=== PATIENT | female | born 1980 | race Caucasian/White ===

== ENCOUNTER 2023-10-31 09:31 | Emergency (ER) | payer OTHER, SELFPAY ==
--- NOTE | ~2023-10-31 | CT_ITS ---
EXAMINATION: CT ABDOMEN AND PELVIS WITH CONTRAST CLINICAL INFORMATION: Right lower quadrant pain COMPARISON: None available. TECHNIQUE: Multidetector volumetric images were obtained from the superior aspect of the liver through the pubic symphysis following administration 85 mL of Omnipaque 350 intravenous contrast. Sagittal and coronal reformatted images were obtained on the technologist's workstation. Oral contrast: No This CT examination was performed using dose optimization techniques as appropriate, variously including the following: *Automated exposure control *Adjustment of mA and/or kV according to patient size (this includes techniques or standardized protocols for targeted exams where dose is matched to indication/reason for exam; i.e. extremities or head) *Use of iterative reconstruction technique DLP: 684 mGy-cm FINDINGS: LUNG BASES: Unremarkable. ABDOMINAL AND PELVIC WALL: Small fat-containing umbilical hernia. LIVER AND BILIARY TREE: Unremarkable. GALLBLADDER: Unremarkable. PANCREAS: Unremarkable. SPLEEN: Incidentally noted accessory splenule. ADRENAL GLANDS: A 1.3 cm left homogeneous adrenal nodule measuring 50 Hounsfield units. KIDNEYS AND URETERS: Circumaortic left renal vein. GASTROINTESTINAL TRACT: Colonic diverticulosis without evidence of diverticulitis. Normal appendix. VASCULAR: Unremarkable. LYMPH NODES/PERITONEUM: No lymphadenopathy. FREE FLUID: None. BLADDER: Unremarkable. PELVIC VISCERA: A 3.4 cm left ovarian lesion measuring greater than simple fluid attenuation for which correlation with pelvic ultrasound is recommended though differential considerations could include a hemorrhagic cyst or endometrioma. Few simple right ovarian cysts measuring up to 3.1 cm measuring fluid attenuation, no follow-up imaging recommended. Status post hysterectomy. Surgical clip in the pelvis. OSSEOUS STRUCTURES: Unremarkable. CT/CT abdomen pelvis w IV con IMPRESSION: * A 3.4 cm left ovarian lesion measuring greater than simple fluid attenuation for which correlation with pelvic ultrasound is recommended though differential considerations could include a hemorrhagic cyst or endometrioma. Few simple right ovarian cysts measuring up to 3.1 cm measuring fluid attenuation, no follow-up imaging recommended. * A 1.3 cm left adrenal nodule measuring 50 Hounsfield units, probable to reflect an adenoma. Recommend 1-year followup adrenal protocol CT. Also, if clinically indicated, consider concurrent laboratory evaluation for possible pheochromocytoma.
[2023-10-31 09:32] VITALS: BP 124/71; PULSE 76; RESP 16; TEMP 36.7; O2SAT 99; BMI 27.5
[2023-10-31 10:02] LABS: MANUAL DIFF FLAG NO
[2023-10-31 10:10] LABS: Basophils Absolute Auto 0.1 X10*3/uL (0.0-0.2); Basophils Percent Auto 0.8 % (0-2); Eosinophils Absolute Auto 0.2 X10*3/uL (0.0-0.4); Eosinophils Percent Auto 3.5 % (0-4); Hematocrit 39.6 % (37.0-47.0); Hemoglobin 13.4 g/dl (12.0-16.0); Imm Gran Abs Auto 0.02 X10*3/uL (0.00-0.03); Imm Gran Pct Auto 0.3 % (0.0-0.4); Lymphocytes Absolute Auto 1.8 X10*3/uL (1.2-4.9); Lymphocytes Percent Auto 29.9 % (20-40); Mean Corpuscular HGB Conc 33.8 g/dl (31.0-35.0); Mean Corpuscular Hemoglobin 30.5 pg (27.0-33.0); Mean Corpuscular Volume 90.2 fL (80.0-98.0); Mean Platelet Volume 8.5 fL (9.4-12.3); Monocytes Absolute Auto 0.3 X10*3/uL (0.1-1.2); Monocytes Percent Auto 4.3 % (2-11); Neutrophils Absolute Auto 3.7 x10*3/uL (2.0-8.3); Neutrophils Percent Auto 61.2 % (45-73); Platelet Count 295 X10*3/uL (160-400); Red Blood Count 4.39 X10*6/uL (4.20-5.50); Red Cell Distribution Width 12.5 % (11.0-16.0)
[2023-10-31 10:18] LABS: Alanine Aminotransferase 11 U/L (0-31); Albumin Level 3.7 g/dL (3.5-5.0); Alkaline Phosphatase 55 U/L (39-117); Anion Gap 8 (12-20); Aspartate Amino Transferase 11 U/L (5-31); Bilirubin Total 0.3 mg/dL (0.0-1.0); Blood Urea Nitrogen 8 mg/dL (9-16); Calcium 9.3 mg/dL (8.4-10.2); Carbon Dioxide 27 mmol/L (22-29); Chloride 110 mmol/L (96-108); Creatinine Clr Calc Pharmacy 87.2; Estimated Glomerular Filt Rate > 60; Glucose Random 98 mg/dL (60-115); Potassium 3.9 mmol/L (3.3-5.1); Sodium 141 mmol/L (135-145); Total Protein 6.8 g/dL (6.5-8.0)
[2023-10-31 10:45] LABS: Influenza A PCR NEGATIVE (Negative); Influenza B PCR NEGATIVE (Negative); Resp Syncy Virus RNA Qual PCR NEGATIVE (Negative); SARS COV2 PCR INHOUSE NEGATIVE (Negative)
[2023-10-31 12:08] VITALS: BP 121/72; PULSE 78; RESP 14; TEMP 36.6; O2SAT 97
--- NOTE | 2023-10-31 12:36 | PC.NURSE ---
a&ox4. vss and up to date. pt presents to the ED w/ 12/23 abd pain that radiates to the RLQ. pt states pain started on wednesday. pt also verbalizing feeling nauseous. denies any episodes of vomiting/diarrhea/fever/chills. pt was seen by urgent care where she was then sent here for evaluation as urgent care provider suspected appendicitis. no sob/wob noted. respirations even and unlabored. plan of care ongoing. call coyne placed within reach.
--- NOTE | 2023-10-31 12:49 | ED_ITS ---
HPI - Abdominal Pain General Chief Complaint: Abdominal Pain Stated Complaint: Abd pain Time Seen by Provider: 10/31/23 12:03 Source: patient and RN notes reviewed Mode of arrival: ambulatory Limitations: no limitations History of Present Illness HPI narrative: This is a 43-year-old female, with no known medical problems, presenting to the emergency department with complaints of ongoing abdominal pain x1 week. Patient states that she developed right-sided abdominal pain 5 days ago. She reports that the pain is sharp, and is constant. Pain worsens with warm getting in with movement. Endorsing nausea, no vomiting or diarrhea. Last bowel movement was yesterday and was normal. No bloody or black stool. Denies taking any medications at home to treat her current symptoms. She had a hysterectomy. No urinary symptoms. No abnormal vaginal discharge or bleeding. No other complaints or concerns at this time. MD elicited complaint: abdominal pain Pertinent past history: none Onset (ago): week(s) Pain Consistency: constant Related Data Previous Rx's Medication Instructions Recorded acetaminophen 500 mg tablet 500 mg PO Q6H PRN pain #30 tabs 10/31/23 (Tylenol Extra Strength) ibuprofen 600 mg tablet 600 mg PO Q6H PRN pain #30 tabs 10/31/23 ondansetron 4 mg disintegrating 4 mg PO Q6-8H PRN nausea and 10/31/23 tablet vomiting #10 tabs Allergies Allergy/AdvReac Type Severity Reaction Status Date / Time Sulfa (Sulfonamide Allergy Hives Verified 10/31/23 09:37 Antibiotics) Review of Systems Review of Systems Yes all other systems are reviewed and are negative Constitutional: Reports as per HPI [facility] Social History Social History Smoked in Last 30 Days: No Use of substances other than those prescribed or required for medical reasons: No Advance Directives: No Advance Directives Information Provided: No Patient : No Physical Exam ED Vital Signs: Vital Signs - 24 hr 10/31/23 09:32 10/31/23 12:08 10/31/23 16:24 Temperature 98.1 F 97.9 F Pulse Rate 76 78 70 Respiratory Rate 16 14 14 Blood Pressure 124/71 121/72 106/69 Pulse Oximetry 99 97 97 Oxygen Delivery Method Room Air Room Air Room Air BMI result Body Mass Index 27.5 Const General: cooperative, comfortable and no acute distress Orientation/consciousness: patient oriented x3 Limitations: no limitations HENMT Head: Yes normal to inspection, Yes normocephalic and Yes atraumatic Ears: hearing grossly normal bilaterally General nose exam: Normal external nose present Face and sinus: Yes normal facial exam Mouth: Normal oral and palatal mucosa present, oropharynx normal and moist mucous membranes Throat: Yes posterior oropharynx normal Eyes General: appearance normal, both eyes and all related structures Eyelids: Yes eyelids normal Conjunctivae: conjunctivae normal Sclerae: sclerae normal Pupils: Equal, round and reactive pupils present EOM: EOMs intact bilaterally Neck Neck: Yes normal visual inspection, Yes full ROM and Yes no lymphadenopathy Lymphatic: no lymphadenopathy noted Chest Chest palpation & inspection: normal inspection of the chest Resp Effort & Inspection: normal respiratory effort and able to speak in complete sentences Auscultation: clear to auscultation bilaterally, no crackles, no rales, no rhonchi and no wheezes Cardio Rate: regular rate Rhythm: regular rhythm Heart sounds: S1 normal heart sound present and S2 normal heart sound present GI Other: Abdomen is soft, with tenderness palpation in the right lower quadrant. Positive Rovsing's, no suprapubic tenderness. Normoactive bowel sounds present. Inspection: Yes normal to inspection Skin General skin exam: no rashes or lesions noted Trauma: no lacerations or abrasions Wounds: no wounds Neuro General: patient oriented x3 and moves all extremities Cranial nerves: Yes Equal, round and reactive pupils present Extrem General: Yes normal to inspection Right upper extremity: normal to inspection Left upper extremity: normal to inspection Right lower extremity: normal to inspection Left lower extremity: normal to inspection Course Reevaluation(s) Reevaluation #1: CT abdomen returns, revealing a 3.4 left ovarian lesion. Differential considerations including hemorrhagic cyst or endometrioma. There are few right ovarian cyst measuring 3.1 cm. There has also a left 1.3 cm adrenal nodule, probable flexion of an adenoma. Recommended 1 year follow-up adrenal protocol CT. Normal appendix, colonic diverticulosis without any evidence of diverticulitis. Discussed findings with patient, partner and mother at bedside. Answered all questions appropriately. Given strict return precautions. They understand and agree with plan. Patient stable for discharge Time: 15:45 Medical Decision Making Medical Decision Making MDM Narrative: This is a 43-year-old female, with no medical problems, presenting to the emergency department with complaints right lower abdominal pain x5 days. On arrival, patient nontoxic appearing, under no acute distress. Vital signs revealing afebrile, blood pressure within normal limits. Patient does have right lower quadrant pain, positive Rovsing's. Differential diagnoses include appendicitis, diverticulitis, diverticulosis, gastroenteritis, small bowel obstruction, large bowel obstruction, UTI. Less likely acute abdomen, ischemic bowel. Plan: Labs, UA, viral swabs, CT abdomen and pelvis Differential Diagnosis Differential Diagnoses: The differential diagnosis associated with the presentation includes See above Admission/Observation Consideration of admission/observation: Escalation of care including admission/observation considered Escalation of care including admission/observation considered however given workup today not warranted at this time. Lab Data MDM Lab Attestation statement: I reviewed the patient's lab results. No leukocytosis, H&H within normal limits, creatinine within normal limits baseline, no evidence of BRYAN, otherwise chemistries nondiagnostic. Negative flu, RSV, and COVID 10/31/23 09:57 10/31/23 09:57 Labs: Lab Results 10/31/23 10/31/23 Range/Units 09:57 16:29 WBC 6.0 (4.8-10.8) X10*3/uL RBC 4.39 (4.20-5.50) X10*6/uL Hgb 13.4 (12.0-16.0) g/dl Hct 39.6 (37.0-47.0) % MCV 90.2 (80.0-98.0) fL MCH 30.5 (27.0-33.0) pg MCHC 33.8 (31.0-35.0) g/dl RDW 12.5 (11.0-16.0) % Plt Count 295 (160-400) X10*3/uL MPV 8.5 L (9.4-12.3) fL Immature Gran % (Auto) 0.3 (0.0-0.4) % Neut % (Auto) 61.2 (45-73) % Lymph % (Auto) 29.9 (20-40) % [place] % (Auto) 4.3 (2-11) % Eos % (Auto) 3.5 (0-4) % Baso % (Auto) 0.8 (0-2) % Lymph # (Auto) 1.8 (1.2-4.9) X10*3/uL [place] # (Auto) 0.3 (0.1-1.2) X10*3/uL Eos # (Auto) 0.2 (0.0-0.4) X10*3/uL Baso # (Auto) 0.1 (0.0-0.2) X10*3/uL Abs Immat Gran (auto) 0.02 (0.00-0.03) X10*3/uL Absolute Neuts (auto) 3.7 (2.0-8.3) x10*3/uL Absolute Nucleated RBC 0.000 (0.0-0.012) X10*3/uL Nucleated RBC % (auto) 0.0 (0.0-0.2) /100WBC Sodium 141 (135-145) mmol/L Potassium 3.9 (3.3-5.1) mmol/L Chloride 110 H (96-108) mmol/L Carbon Dioxide 27 (22-29) mmol/L Anion Gap 8 L (12-20) BUN 8 L (9-16) mg/dL Creatinine 0.82 (0.5-1.4) mg/dL Estim Creat Clear Calc 87.2 Estimated GFR > 60 Random Glucose 98 (60-115) mg/dL Calcium 9.3 (8.4-10.2) mg/dL Total Bilirubin 0.3 (0.0-1.0) mg/dL AST 11 (5-31) U/L ALT 11 (0-31) U/L Alkaline Phosphatase 55 (39-117) U/L Total Protein 6.8 (6.5-8.0) g/dL Albumin 3.7 (3.5-5.0) g/dL Urine Color Yellow Urine Appearance Clear Urine pH 7.5 (5.0-9.0) Ur Specific [place] >= 1.030 H (1.005-1.025) Urine Protein Negative (Neg-Trace) mg/dL Urine Glucose (UA) Negative (Negative) mg/dL Urine Ketones Negative (Negative) mg/dL Urine Blood Negative (Negative) Urine Nitrite Negative (Negative) Ur Leukocyte Esterase Negative (Negative) Influenza Type A (PCR) NEGATIVE (Negative) Influenza Type B (PCR) NEGATIVE (Negative) RSV RNA Qual (PCR) NEGATIVE (Negative) SARS-CoV-2 RNA (RT-PCR) NEGATIVE (Negative) Radiology Impression Discussion of test interpretation with radiology: I have reviewed the radiologist's reading. Radiologist Impression: FINDINGS: LUNG BASES: Unremarkable. ABDOMINAL AND PELVIC WALL: Small fat-containing umbilical hernia. LIVER AND BILIARY TREE: Unremarkable. GALLBLADDER: Unremarkable. PANCREAS: Unremarkable. SPLEEN: Incidentally noted accessory splenule. ADRENAL GLANDS: A 1.3 cm left homogeneous adrenal nodule measuring 50 Hounsfield units. KIDNEYS AND URETERS: Circumaortic left renal vein. GASTROINTESTINAL TRACT: Colonic diverticulosis without evidence of diverticulitis. Normal appendix. VASCULAR: Unremarkable. LYMPH NODES/PERITONEUM: No lymphadenopathy. FREE FLUID: None. BLADDER: Unremarkable. PELVIC VISCERA: A 3.4 cm left ovarian lesion measuring greater than simple fluid attenuation for which correlation with pelvic ultrasound is recommended though differential considerations could include a hemorrhagic cyst or endometrioma. Few simple right ovarian cysts measuring up to 3.1 cm measuring fluid attenuation, no follow-up imaging recommended. Status post hysterectomy. Surgical clip in the pelvis. OSSEOUS STRUCTURES: Unremarkable. CT/CT abdomen pelvis w IV con IMPRESSION: * A 3.4 cm left ovarian lesion measuring greater than simple fluid attenuation for which correlation with pelvic ultrasound is recommended though differential considerations could include a hemorrhagic cyst or endometrioma. Few simple right ovarian cysts measuring up to 3.1 cm measuring fluid attenuation, no follow-up imaging recommended. * A 1.3 cm left adrenal nodule measuring 50 Hounsfield units, probable to reflect an adenoma. Recommend 1-year followup adrenal protocol CT. Also, if clinically indicated, consider concurrent laboratory evaluation for possible pheochromocytoma. Dictated By: Randi Kaye MD Independent Historian Clinical information obtained from an independent historian. History obtained from or confirmed by: Spouse and Parent Medications Administered Discontinued Medications Generic Name Dose Route Start Last Admin Trade Name Freq PRN Reason Stop Dose Admin Iohexol 100 ml 10/31/23 13:29 10/31/23 13:29 Iohexol 350 Mg/Ml 100 Ml Infus..Btl IV 10/31/23 13:30 85 ml ONCE ONE Administration Discharge Plan Discharge Clinical Impression: Abdominal pain, Ovarian cyst, Abnormal finding on CT scan, Adrenal nodule Patient Disposition: Home, Self-Care Instructions: Ovarian Cyst (ED), Abdominal Pain (ED) Additional Instructions: You were seen in the emergency department due to abdominal pain. Your CT scan shows a left ovarian lesion please follow-up with OBGYN as you may need to have an ultrasound performed for further workup. You also have several right ovarian cysts, which may be the source of your pain. You also have an incidental finding of a left adrenal nodule, recommended 1 year follow-up. Follow-up with your primary care physician regarding this finding. You may take ibuprofen and/or Tylenol as needed for pain. I am also prescribing you a medication called Zofran, take this only as needed for nausea. If any new or worsening symptoms occur including but not limited to fevers, chills, worsening abdominal pain, chest pain, shortness of breath, please return for re-evaluation. Prescriptions: New ibuprofen 600 mg tablet 600 mg PO Q6H PRN (Reason: pain) Qty: 30 0RF acetaminophen [Tylenol Extra Strength] 500 mg tablet 500 mg PO Q6H PRN (Reason: pain) Qty: 30 0RF ondansetron 4 mg tablet,disintegrating 4 mg PO Q6-8H PRN (Reason: nausea and vomiting) Qty: 10 0RF Referrals: [facility] [place] [facility] [Provider Group] Stand Alone Forms: Work/School Release
--- NOTE | 2023-10-31 13:02 | PC.NURSE ---
20gIV placed in the right AC - pt waiting to go to CT at this time. call coyne placed within reach.
[2023-10-31] MEDS: iohexoL 350 MG/ML 100 ML INFUS..BTL IV (13:29)
[2023-10-31 16:24] VITALS: BP 106/69; PULSE 70; RESP 14; O2SAT 97
[2023-10-31 16:35] LABS: Appearance Urine Clear; Color Urine Yellow; Glucose Urine UA Negative (Negative); Leukocyte Esterase Urine Negative (Negative); Nitrite Urine Negative (Negative); PH 7.5 (5.0-9.0); Specific Gravity - Urine >= 1.030 (1.005-1.025); Urine Blood Negative (Negative); Urine Ketones Negative (Negative); Urine Protein Negative (Neg-Trace)
[2023-10-31 16:39] LABS: Bacteria Urine 1+ (None Seen); Hyaline Casts Urine 0-2 /LPF (0-2); RBC Urine 0-2 /HPF (0-2); WBC Urine 0-5 /HPF (0-5)
[2023-10-31 17:39] VITALS: BP 108/71; PULSE 72; RESP 14; TEMP 36.7; O2SAT 97
== END 2023-10-31 17:40 | disposition home or self-care (01) ==
PROVIDERS: Emergency Provider Emergency Medicine
DX: R10.9 Unspecified abdominal pain (principal); N83.201 Unspecified ovarian cyst, right side; E27.8 Other specified disorders of adrenal gland; R93.89 Abnormal findings on diagnostic imaging of other specified body structures; Z90.710 Acquired absence of both cervix and uterus; Z11.52 Encounter for screening for COVID-19; Z20.828 Contact with and (suspected) exposure to other viral communicable diseases
CPT/HCPCS: 0241U; 74177; 80053; 81001; 85025; 99284; Q9967